=== PATIENT | female | born 1980 ===

== ENCOUNTER 2020-06-14 13:34 | Inpatient (IN) | payer MEDICAID, OTHER ==
[~2020-06-14] VITALS: Ht 149.9 cm; Wt 72.6 kg
[2020-06-14 14:59] LABS: BASOPHILS % (AUTO) 0.6 % (0.0-2.0); EOSINOPHILS % (AUTO) 0.4 % (1.0-6.0); HEMATOCRIT 36.3 % (36-46); HEMOGLOBIN 12.1 g/dL (12.0-16.0); LYMPHOCYTES # (AUTO) 1.9 K/uL (1.0-4.8); LYMPHOCYTES % (AUTO) 23.5 % (22.0-44.0); MEAN CORPUSCULAR HEMOGLOBIN 27.2 pg (26.0-34.0); MEAN CORPUSCULAR HGB CONC 33.5 G/dL (31.0-37.0); MEAN CORPUSCULAR VOLUME 81 fL (80-100); MONOCYTES # (AUTO) 0.5 K/uL (0.1-1.0); MONOCYTES % (AUTO) 6.3 % (2.0-9.0); NEUTROPHILS # (AUTO) 5.7 K/uL (1.8-7.7); NEUTROPHILS % (AUTO) 69.2 % (40.0-70.0); PLATELET COUNT (AUTO) 281 K/uL (150-450); RED BLOOD CELL COUNT(AUTO) 4.46 MIL/uL (4.00-5.20); RED CELL DISTRIBUTION WIDTH 15.9 % (11.5-14.5)
[2020-06-14 15:15] LABS: ANION GAP 9 mmol/L (8-16); CALCIUM, TOTAL 9.2 mg/dL (8.8-10.5); CARBON DIOXIDE 26 mmol/L (22-29); CHLORIDE 100 mmol/L (98-107); CREATININE 0.79 mg/dL (0.60-1.30); GLOMERULAR FILTR. RATE CALC > 60 mL/min (>60); GLUCOSE,RANDOM 98 mg/dL (70-110); POTASSIUM 3.3 mmol/L (3.5-5.1); SODIUM SERUM 135 mmol/L (136-145); UREA NITROGEN, BLOOD 7 mg/dL (7-18)
[2020-06-14 15:21] LABS: ALANINE AMINOTRANSFERASE 24 U/L (12-78); ALBUMIN 4.1 g/dL (3.4-5.0); ALKALINE PHOSPHATASE 85 U/L (46-116); ASPARTATE AMINOTRANSFERASE 20 U/L (15-37); BILIRUBIN,TOTAL 0.4 mg/dL (0.1-1.0); TOTAL PROTEIN, SERUM 8.1 g/dL (6.4-8.2)
[2020-06-14] MEDS ORDERED: HALOPERIDOL 1 MG TABLET PO ONE (16:30)
[2020-06-14] MEDS: LORazepam 2 MG TABLET PO ONE ×2 (16:46→16:47)
[2020-06-14] MEDS ORDERED: ZOLPIDEM TARTRATE 10 MG TABLET PO PRN (19:00)
[2020-06-14] MEDS ORDERED: HALOPERIDOL 5 MG TABLET PO PRN (19:00)
[2020-06-14 19:33] LABS: AMPHET/METH SCREEN,URINE POSITIVE (NEGATIVE); BARBITURATE SCREEN, URINE NEGATIVE (NEGATIVE); BENZODIAZEPINES SCREEN,URINE NEGATIVE (NEGATIVE); CANNABINOID SCREEN,URINE NEGATIVE (NEGATIVE); COCAINE SCREEN,URINE NEGATIVE (NEGATIVE); METHADONE SCREEN, URINE NEGATIVE (NEGATIVE); OPIATE SCREEN,URINE NEGATIVE (NEGATIVE); PHENCYCLIDINE SCREEN,URINE NEGATIVE (NEGATIVE)
[2020-06-14] MEDS ORDERED: HALOPERIDOL LACTATE 5 MG/ML VIAL ONE (19:59)
[2020-06-14] MEDS ORDERED: LORazepam 2 MG/ML VIAL ONE (19:59)
[2020-06-14] MEDS ORDERED: DiphenhydrAMINE HCL 50 MG/ML VIAL ONE (19:59)
[2020-06-14] MEDS ORDERED: HALOPERIDOL LACTATE 5 MG/ML VIAL IM ONE (20:00)
[2020-06-14] MEDS ORDERED: DiphenhydrAMINE HCL 50 MG/ML VIAL IM ONE (20:00)
[2020-06-14] MEDS ORDERED: LORazepam 2 MG/ML VIAL IM ONE (20:00)
[2020-06-14 22:34] VITALS: BP 99/61
[2020-06-15 06:28] VITALS: BP 108/62
[2020-06-15] MEDS ORDERED: PETROLATUM,WHITE 28 GM JELLY TP PRN (08:00)
[2020-06-15] MEDS ORDERED: NICOTINE 14 MG/24 HOUR PATCH TD PRN (08:00)
[2020-06-15] MEDS ORDERED: IBUPROFEN 400 MG TABLET PO PRN (08:00)
[2020-06-15] MEDS ORDERED: MAG HYDROX/AL HYDROX/SIMETH ES 30 ML SUSPENSION UDCUP PO PRN (08:00)
[2020-06-15] MEDS ORDERED: MAGNESIUM HYDROXIDE SUSPENSION 30 ML UDCUP PO PRN (08:00)
[2020-06-15] MEDS ORDERED: ACETAMINOPHEN 325 MG TABLET PO PRN (08:00)
[2020-06-15] MEDS ORDERED: LOPERAMIDE HCL 2 MG CAPSULE PO PRN (08:00)
[2020-06-15] MEDS ORDERED: CloNIDine HCL 0.1 MG TABLET PO PRN (08:00)
[2020-06-15] MEDS ORDERED: ALBUTEROL SULFATE HFA 90 MCG/PUFF 8 GM INHALER IH PRN (08:00)
[2020-06-15] MEDS ORDERED: DOCUSATE SODIUM 100 MG CAPSULE PO PRN (08:00)
[2020-06-15] MEDS ORDERED: ONDANSETRON HCL 4 MG TABLET PO PRN (08:00)
[2020-06-15] MEDS ORDERED: GuaiFENesin/D-METHORPHAN [SUGAR-FREE] 200-20MG/10 ML SYRUP UDCUP PO PRN (08:00)
[2020-06-15 08:07] VITALS: BP 100/59
[2020-06-15 08:13] LABS: CHOL/HDL RATIO 2.2 (3.9-5.7)
[2020-06-15] MEDS ORDERED: POTASSIUM CHLORIDE 20 MEQ ER TABLET PO ONE (10:30)
[2020-06-15] MEDS ORDERED: CETIRIZINE HCL 10 MG TABLET PO PRN (10:30)
[2020-06-15] MEDS: LORazepam 2 MG TABLET PO PRN (10:51)
[2020-06-15 16:05] VITALS: BP 100/60
[2020-06-15] MEDS: RisperiDONE 2 MG TABLET PO SCH (20:05)
[2020-06-16 06:22] VITALS: BP 122/60
[2020-06-16 07:15] LABS: CHOL/HDL RATIO 2.2 (3.9-5.7)
[2020-06-16 08:07] VITALS: BP 100/61
[2020-06-16 16:33] VITALS: BP 98/43
[2020-06-16] MEDS: RisperiDONE 2 MG TABLET PO SCH (20:52)
[2020-06-17 03:21] VITALS: BP 120/62
[2020-06-17] MEDS: NYSTATIN 30 GM CREAM TP SCH ×2 (09:11→16:57)
[2020-06-17] MEDS: RisperiDONE 2 MG TABLET PO SCH (20:31)
[2020-06-18 00:43] VITALS: BP 122/65
[2020-06-18] MEDS: NYSTATIN 30 GM CREAM TP SCH ×2 (07:57→17:06)
[2020-06-18] MEDS: LORazepam 2 MG TABLET PO PRN ×2 (08:02→15:02)
[2020-06-18] MEDS: RisperiDONE 2 MG TABLET PO SCH (21:00)
[2020-06-19] MEDS: NYSTATIN 30 GM CREAM TP SCH ×2 (08:48→16:11)
[2020-06-19 10:25] VITALS: BP 92/53
[2020-06-19 11:12] VITALS: BP 110/72
[2020-06-19] MEDS: LORazepam 2 MG TABLET PO PRN ×2 (11:13→16:10)
[2020-06-19] MEDS: RisperiDONE 2 MG TABLET PO SCH (21:00)
[2020-06-20 08:06] VITALS: BP 115/78
[2020-06-20] MEDS: NYSTATIN 30 GM CREAM TP SCH ×2 (08:25→17:10)
[2020-06-20] MEDS: LORazepam 2 MG TABLET PO PRN ×3 (12:05→23:15)
[2020-06-20 16:02] VITALS: BP 104/50
[2020-06-20] MEDS: RisperiDONE 2 MG TABLET PO SCH (21:00)
[2020-06-21 05:57] VITALS: BP 101/57
[2020-06-21 08:11] VITALS: BP 101/64
[2020-06-21] MEDS: NYSTATIN 30 GM CREAM TP SCH (08:15)
[2020-06-21] MEDS ORDERED: RISP2TAB23 PO (10:46)
[2020-06-21] MEDS ORDERED: PALI156D IM (10:47)
== END 2020-06-21 11:30 | disposition home or self-care (01) | DRG 885 ==
LOC: EMS 13:36 → B3A 18:53
PROVIDERS: ADMIT Psychiatry & Neurology Child & Adolescent Psychiatry; ATTEND Psychiatry & Neurology Child & Adolescent Psychiatry
DX: F20.0 Paranoid schizophrenia (principal); E87.1 Hypo-osmolality and hyponatremia; F84.0 Autistic disorder; E87.6 Hypokalemia; F15.90 Other stimulant use, unspecified, uncomplicated; J30.2 Other seasonal allergic rhinitis; Z53.20 Procedure and treatment not carried out because of patient's decision for unspecified reasons
CPT/HCPCS: 84132; 87081; G0480; J1200; J1630; J2060